=== PATIENT | female | born 1950 | race Caucasian/White ===

== ENCOUNTER 2021-07-15 17:50 | Emergency (ER) | payer MEDICARE ==
[~2021-07-15] VITALS: Ht 167.6 cm; Wt 72.7 kg
[~2021-07-15 17:50] MED LIST: BUPR1PAT3 TD; GABA-581 PO
[2021-07-15] MEDS ORDERED: MESSAGE TO NURSING PO SCH (18:00)
--- NOTE | 2021-07-15 18:20 | NUR ---
ARRIVED TO BED 18 PT IS RETURNING FROM CT, PT REPORTS RESOLVING SYMPTOMS, STILL HAS MINIMAL NUMBNESS TO R HAND. SHE REPORTS THAT AT 1400 SHE WAS CLEANING AND BECAME DIZZY, SAT DOWN AND NOTICED LEFT HAND NUMB, PROGRESSED TO LEFT ARM, LEG AND FOOT NUMBNESS AND WEAKNESS.
--- NOTE | 2021-07-15 18:57 | NUR ---
DR BUENROSTRO FROM [facility] HAS COMPLETED EXAM AND CALLED BACK WITH RECOMMENDATIONS FOR DUAL ANTIPLATLET THERAPY AND GET CTA. ADMIT FOR TIA/VS CVA.
[2021-07-15 18:58] LABS: PARTIAL THROMBOPLASTIN TIME 27 SECONDS (22-32)
[2021-07-15 19:02] LABS: ALANINE AMINOTRANSFERASE 23 U/L (12-78); ALBUMIN 3.5 G/DL (3.4-5.0); ALBUMIN/GLOBULIN RATIO 1.1 (1.1-1.5); ALKALINE PHOSPHATASE 84 IU/L (46-116); ANION GAP 10 (8-16); ASPARTATE AMINO TRANSFERASE 16 U/L (10-37); BILIRUBIN,TOTAL 0.2 MG/DL (0.1-1.0); BLOOD UREA NITROGEN 25 MG/DL (7-18); BUN/CREATININE RATIO 22.5 (6.6-38.0); CALCIUM 8.1 MG/DL (8.5-10.1); CHLORIDE 105 MMOL/L (99-107); CREATININE 1.11 MG/DL (0.40-0.90); GLUCOSE 127 MG/DL (70-104); POTASSIUM 3.6 MMOL/L (3.5-5.1); SODIUM 144 MMOL/L (135-145); TOTAL PROTEIN 6.8 G/DL (6.4-8.2); eGFR 48 ML/MIN
[2021-07-15 19:05] LABS: BASOPHILS % (AUTO) 0.4 % (0-1); EOSINOPHILS # (AUTO) 0.2 X10'3 (0-0.9); EOSINOPHILS % (AUTO) 2.9 % (0-6); HEMATOCRIT 36.3 % (35.0-45.0); HEMOGLOBIN 12.2 g/dl (12.0-16.0); LYMPHOCYTES # (AUTO) 1.9 X10'3 (1.1-4.8); LYMPHOCYTES % (AUTO) 28.8 % (21-51); MEAN CORPUSCULAR HGB CONC 33.6 g/dL (33.0-36.5); MEAN CORPUSCULAR VOLUME 92.3 FL (78-98); MEAN PLATELET VOLUME 8.4 FL (7.4-10.4); MONOCYTES # (AUTO) 0.4 X10'3 (0-0.9); MONOCYTES % (AUTO) 5.8 % (2-12); NEUTROPHILS # (AUTO) 4.1 X10'3 (1.8-7.7); NEUTROPHILS % (AUTO) 62.1 % (42-75); PLATELET COUNT 270 X10'3 (140-440); RED BLOOD COUNT 3.93 X10'6 (4.20-5.60); WHITE BLOOD COUNT 6.7 X10'3 (4.5-11.0)
--- NOTE | 2021-07-15 20:47 | NUR ---
WENT IN TO PT ROOM AND PT STATING THAT NUMBNESS IS COMING BACK. LOCALIZED TO LEFT HAND AT THIS TIME.
[2021-07-15] MEDS ORDERED: clopidogrel 300mg tablet PO ONE (20:50)
[2021-07-15] MEDS ORDERED: EST1T PO (21:03)
[2021-07-15] MEDS ORDERED: DICL-343 PO (21:04)
[2021-07-15] MEDS ORDERED: HYDR-3972 PO (21:05)
[2021-07-15] MEDS ORDERED: GABA400C PO (21:06)
[2021-07-15] MEDS ORDERED: DICY10CA88 PO (21:08)
[2021-07-15] MEDS ORDERED: METF-436 PO (21:09)
[2021-07-15] MEDS ORDERED: PERFLUTREN PROTEIN-A MICROSPHR (Optison) 0.22 MG/ML 3ML VIAL IV PRN (21:20)
[2021-07-15] MEDS ORDERED: normal saline 1000ml 1,000 ML IV SCH (21:20)
--- NOTE | 2021-07-15 21:44 | NUR ---
HAD TO ADMINISTER WITHOUT SCANNING. SCANNER NOT WORKING. TRIPLE CHECKED VERIFICIATION OF PT IDENTITY AND RIGHT MED AND DOSE
[2021-07-15 22:17] LABS: HEMOGLOBIN A1C 6.1 % (4.5-6.2)
[2021-07-16] MEDS ORDERED: GABA600T13 PO (03:13)
[2021-07-16 05:09] LABS: CLARITY,URINE CLEAR (Clear); COLOR,URINE YELLOW (Yellow); GLUCOSE, URINE NEGATIVE (Neg); KETONES,URINE NEGATIVE (Neg); LEUKOCYTE ESTERASE ,URINE NEGATIVE (Neg); NITRITES, URINE NEGATIVE (Neg); OCCULT BLOOD,URINE NEGATIVE (Neg); PROTEIN,URINE NEGATIVE (Neg); UROBILINOGEN,URINE 0.2 E.U/dL (0.2-1.0)
[2021-07-16 05:17] LABS: UA COLLECTION TYPE NON-SPECIFIED
[2021-07-16 05:21] LABS: BASOPHILS % (AUTO) 0.5 % (0-1); EOSINOPHILS # (AUTO) 0.3 X10'3 (0-0.9); EOSINOPHILS % (AUTO) 4.6 % (0-6); HEMATOCRIT 36.2 % (35.0-45.0); LYMPHOCYTES # (AUTO) 2.2 X10'3 (1.1-4.8); LYMPHOCYTES % (AUTO) 39.1 % (21-51); MEAN CORPUSCULAR HEMOGLOBIN 30.9 PG (27.0-31.0); MEAN CORPUSCULAR HGB CONC 33.1 g/dL (33.0-36.5); MEAN CORPUSCULAR VOLUME 93.3 FL (78-98); MEAN PLATELET VOLUME 8.2 FL (7.4-10.4); MONOCYTES # (AUTO) 0.3 X10'3 (0-0.9); MONOCYTES % (AUTO) 5.4 % (2-12); NEUTROPHILS # (AUTO) 2.8 X10'3 (1.8-7.7); NEUTROPHILS % (AUTO) 50.4 % (42-75); PLATELET COUNT 237 X10'3 (140-440); RED BLOOD COUNT 3.88 X10'6 (4.20-5.60); RED CELL DISTRIBUTION WIDTH 13.2 % (11.5-14.5); WHITE BLOOD COUNT 5.5 X10'3 (4.5-11.0)
[2021-07-16 05:32] LABS: CHOL/HDL RATIO 7.8 (0.00-4.99); CHOLESTEROL 337 MG/DL (0-200); HDL CHOLESTEROL 43 MG/DL (35-60); LDL CHOLESTEROL 204 MG/DL (50-100); TRIGLYCERIDES 321 MG/DL (20-135)
[2021-07-16] MEDS ORDERED: dicyclomine 10 MG capsule PO SCH (08:00)
[2021-07-16] MEDS ORDERED: clopidogrel 75mg tablet PO SCH (08:00)
[2021-07-16] MEDS ORDERED: aspirin 81mg, enteric-coated 1 TAB TABLET.DR PO SCH (08:00)
[2021-07-16] MEDS ORDERED: HYDROcodone/acetaminophen 10/325mg tab PO SCH (08:00)
[2021-07-16] MEDS ORDERED: gabapentin 300mg capsule PO SCH (08:00)
[2021-07-16] MEDS ORDERED: non-formulary drug (Gabapentin 1 TAB) PO SCH (08:00)
[2021-07-16] MEDS ORDERED: atorvastatin 10mg tablet PO SCH (08:00)
[2021-07-16] MEDS ORDERED: DICY20TA17 PO (09:06)
--- NOTE | 2021-07-16 09:24 | NUR ---
PATIENT IS TO HAVE MRI OF HEAD AND TOLD THE TRANSPORTER THAT SHE IS CLAUSTROPHOBIC. MESSAGE SENT TO HOSPITALIST [facility]. PAGER ID: [phone] MESSAGE: ER bed #15 - PATIENT IS HAVING MRI OF HEAD THIS MORNING AND IS CLAUSTROPHOBIC, SO SHE WILL NEED SOMETHING TO CALM HER ANXIETY. THANK YOU, ROSIO EXT [phone] PATIENT IS UP WALKING TO THE BATHROOM WITH STAND-BY. TOLERATED WALKING INDEPENDENTLY.
[2021-07-16] MEDS ORDERED: LORazepam 2 mg/ml vial IV ONE (09:30)
[2021-07-16 10:49] VITALS: BP 154/72
[2021-07-16] MEDS ORDERED: ATOR10TA PO (16:07)
[2021-07-16] MEDS ORDERED: ASPI-1071 PO (16:07)
[2021-07-16] MEDS ORDERED: CLOP75TA34 PO (16:07)
[2021-07-16] MEDS ORDERED: enoxaparin 40mg/0.4ml syringe SQ SCH (20:00)
== END 2021-07-16 16:16 | disposition home or self-care (01) ==
LOC: ER 17:51 → ED HOLD 21:22 → UNDOADMIN 21:22 → UNDODISIN 07-16 13:55 → ER 07-16 16:16
DX: G45.9 Transient cerebral ischemic attack, unspecified (principal); I65.29 Occlusion and stenosis of unspecified carotid artery; R29.701 NIHSS score 1; M47.9 Spondylosis, unspecified; G51.0 Bell's palsy; E11.9 Type 2 diabetes mellitus without complications; G89.29 Other chronic pain; Z90.710 Acquired absence of both cervix and uterus
CPT/HCPCS: 36415; 70450; 70496; 70498; 70551; 71045; 80053; 80061; 81003; 83036; 85025; 85610; 85651; 85730; 86885; 86900; 86901; 87081; 92508; 92616; 93005; 93306; 96361; 96374; 99285; J2060; J7030; G0378

== ENCOUNTER 2022-08-21 10:35 | Emergency (ER) | payer MEDICARE ==
[~2022-08-21] VITALS: Ht 167.6 cm; Wt 72.7 kg
[~2022-08-21 10:35] MED LIST changes: +ASPI-1071 PO; +ATOR10TA PO; -BUPR1PAT3 TD; +CLOP75TA34 PO; +DICL-343 PO; +DICY20TA17 PO; +EST1T PO; -GABA-581 PO; +GABA600T13 PO; +HYDR-3972 PO; +METF-436 PO
--- NOTE | 2022-08-21 10:54 | NUR ---
SPOKE WITH SAURAV SANTOYO REGARDING FINDINGS IN TRIAGE. VERBAL ORDER RECEIVED FOR CT HEAD AND FACIAL BONES/SOFT TISSUE WITH NO CONTRAST. ORDERS PLACED RECEIVED
[2022-08-21] MEDS ORDERED: TETanus/Pertussis (Acell)/Diphther VAC/PF (Tdap-Adult) 0.5ml syringe IMVAC ONE (12:20)
[2022-08-21] MEDS ORDERED: LIDOcaine 1% (10mg/ml)w/preservative inj. 20ml MDV IJ ONE (12:20)
[2022-08-21] MEDS ORDERED: HYDROcodone/acetaminophen 10/325mg tab PO ONE (12:20)
[2022-08-21] MEDS ORDERED: LIDOcaine 1% 30ml preserv. free vial IJ ONE (12:45)
[2022-08-21] MEDS ORDERED: LIDOcaine 1% W/epiNEPHrine 1:200,000 10ml vial IJ ONE (13:20)
[2022-08-21] MEDS ORDERED: LIDOcaine 1% w/EPI 1:100,000 30ml vial (MDV) IJ ONE (13:25)
[2022-08-21] MEDS ORDERED: ACET-3068 PO (14:17)
[2022-08-21] MEDS ORDERED: CEPH-585 PO (14:17)
[2022-08-21] MEDS ORDERED: cephalexin 500mg capsule PO ONE (14:20)
--- NOTE | 2022-08-21 15:45 | NUR ---
SURGICELL PLACED TO RIGHT CHEEK ABRASSION, PER VERBAL PER DR XAVIER. OOZING STOPPED
[2022-08-21 16:55] VITALS: BP 175/78
== END 2022-08-21 16:58 | disposition home or self-care (01) ==
LOC: ER 10:35
DX: S02.40EA Zygomatic fracture, right side, initial encounter for closed fracture (principal); S01.81XA Laceration without foreign body of other part of head, initial encounter; E11.9 Type 2 diabetes mellitus without complications; G89.29 Other chronic pain; Z90.710 Acquired absence of both cervix and uterus; Z98.890 Other specified postprocedural states; Z88.2 Allergy status to sulfonamides; Z88.6 Allergy status to analgesic agent; Z88.8 Allergy status to other drugs, medicaments and biological substances; Z79.82 Long term (current) use of aspirin; Z79.2 Long term (current) use of antibiotics; Z79.899 Other long term (current) drug therapy; W01.0XXA Fall on same level from slipping, tripping and stumbling without subsequent striking against object, initial encounter; Y93.89 Activity, other specified; Y92.89 Other specified places as the place of occurrence of the external cause; Y99.8 Other external cause status
CPT/HCPCS: 12011; 70450; 70486; 90471; 90715; 99284; A6223; J7030; A6258; A6449